=== PATIENT | female | born 1975 | race Two or more races ===

== ENCOUNTER 2018-12-19 06:00 | Day surgery (SDC) | payer OTHER ==
[2018-12-19] VITALS (8 sets, daily range): BP systolic 115–124; BP diastolic 66–75
[~2018-12-19] VITALS: Ht 152.4 cm; Wt 76.2 kg
[~2018-12-19 06:00] MED LIST: HYOSCYAMINE0.125 M2 PO; OMEPRAZOLE20 M2 ORAL
--- NOTE | 2018-12-19 07:46 | Short Stay Surgery H&P ---
History of Present Illness History of Present Illness Chief Complaint abdominal pains, GERDs HPI Rosario Cruz is a 43 year old female who was admitted on for NSAID Gastropathy,Gerds/abdominal pains Patient History Allergies: Coded Allergies: No Known Allergies (Unverified , 12/18/18) Past Surgeries: (1) S/P eye surgery Medication History Scheduled Omeprazole (Omeprazole), 20 MG ORAL DAILY, (Reported) Miscellaneous Medications Hyoscyamine Sulfate (Hyoscyamine Sulfate), 0.125 MG PO, (Reported) Review of Systems Cardiovascular: Reports: no symptoms Respiratory: Reports: no symptoms Skeletal: Reports: trauma Gastrointestinal: Reports: gastro esophageal reflux disease Genitourinary: Reports: no symptoms Neurologic: Reports: no symptoms Endocrine: Reports: no symptoms Hematologic: Reports: no symptoms Physical Exam Vital Signs Last Vital Signs Date Time Temp Pulse Resp B/P (MAP) Pulse Ox O2 Delivery O2 Flow Rate FiO2 12/19/18 06:32 Room Air 12/19/18 06:30 97.7 89 20 124/70 96 Labs Laboratory Tests Test 12/19/18 06:10 Urine HCG, Qualitative Negative (NEGATIVE) Skin: normal HENT: normal Heart: normal Lungs: normal Abdomen: abnormal Extremities: normal Genitourinary: normal Plan Plan of Care Upper GI endoscopy and biopsy Preop Interventions None, Summary of Findings See the reports Attestation Are the patient's medical conditions optimized for surgery? Attestation Response: yes Laverne Steele MD Dec 19, 2018 07:46
--- NOTE | 2018-12-19 07:48 | Pre-Procedure Note/Attestation ---
Pre-Procedure Note/Attestation Complete Prior to Procedure Planned Procedure: left Procedure Narrative: Examinaation of the upper GI tract and obtaining biopsy to R/O Helicobacter Pylori infection Indications for Procedure Pre-Operative Diagnosis: R/O Peptic Ulcer disease/ Peptic ulcer/Gastritis/Helicobacter infection Attestation I attest that I discussed the nature of the procedure; its benefits; risks and complications; and alternatives (and the risks and benefits of such alternatives ), prior to the procedure, with the patient (or the patient's legal retail wireless sales representative). I attest that, if there was a reasonable possibility of needing a blood transfusion, the patient (or the patient's legal retail wireless sales representative) was given the [place] [employer] [facility] standardized written summary, pursuant to the Thuan Kell Blood Safety Act ([place] Health and Safety Code # 1645, as amended). I attest that I re-evaluated the patient just prior to the surgery and that there has been no change in the patient's H&P, except as documented below: Laverne Steele MD Dec 19, 2018 07:48
[2018-12-19] MEDS ORDERED: Propofol 200mg/20ml IV ONE (07:55)
[2018-12-19] MEDS ORDERED: LR 1000ml ONE (07:55)
[2018-12-19] MEDS ORDERED: Midazolam 2mg/2ml Inj ONE (07:55)
[2018-12-19] MEDS ORDERED: Lidocaine 1% MPF 10mg/ml 5ml ONE (07:55)
--- NOTE | 2018-12-19 08:16 | Endoscopy Procedure Note ---
Endoscopy Procedure Note General Indication for Procedure: Abdominal pains/GERDs/nausea Procedures Performed: EGD - Mild gastroduodenitis otherwise normal upper GI endoscopy. Biopsy obtained from distal doudenal bulb and gastric body. Specimen: yes Pt Tolerated Procedure Well: Yes Estimated Blood Loss: none Anesthesia Anesthesiologist: Ms Angelina Juarez CRNA Anesthesia: moderate sedation Medications Medication Given: see anesthesia record Inserted Devices Implant(s) used?: No Quality Quality of Bowel Preparation: Excellent Was there any complications?: No GI Core Measures 50 yrs or older w/o bx or poly: Not Applicable 10yrs. F/U not recommended: Not Applicable If not recommended, why?: Med reason:<3 yrs.: System Reason:<3 yrs.: Laverne Steele MD Dec 19, 2018 08:16
--- NOTE | 2018-12-19 08:16 | Anethesia Preoperative Eval ---
Anesthesia Pre-op PMH/ROS General Date of Evaluation: Dec 19, 2018 Time of Evaluation: 07:55 Anesthesiologist: Ann ASA Score: ASA 1 Mallampati Score Class I : Soft palate, uvula, fauces, pillars visible Class II: Soft palate, uvula, fauces visible Class III: Soft palate, base of uvula visible Class IV: Only hard plate visible Mallampati Classification: Class II Surgeon: Antonino Diagnosis: GERD Surgical Procedure: EGD Anesthesia History: none Family History: no anesthesia problems Allergies: Coded Allergies: No Known Allergies (Unverified , 12/18/18) Medications: see eMAR Patient NPO?: Yes NPO Date: Dec 18, 2018 NPO Time: 22:00 Past Medical History Cardiovascular: Denies: HTN, CAD, [place], valve dz, arrhythmia, other Pulmonary: Denies: asthma, COPD, DARVIN, other Gastrointestinal/Genitourinary: Reports: GERD Neurologic/Psychiatric: Reports: depression/anxiety, other - Migraines Endocrine: Reports: DM HEENT: Reports: HYDABURG (L), HYDABURG (R) Hematology/Immune: Denies: anemia, DVT, bleeding disorder, other Musculoskeletal/Integumentary: Reports: other - Left arm muscle pain due to work related injury PSxH Narrative: bilateral ear surgery as child Anesthesia Pre-op Phys. Exam Physician Exam Last Vital Signs Date Time Temp Pulse Resp B/P (MAP) Pulse Ox O2 Delivery O2 Flow Rate FiO2 12/19/18 06:32 Room Air 12/19/18 06:30 97.7 89 20 124/70 96 Constitutional: NAD Neurologic: CN 2-12 intact Cardiovascular: RRR Respiratory: CTA Gastrointestinal: S/NT/ND Airway Exam Mallampati Score: Class II MO: full ROM: full Teeth: intact Dentures: no upper, no lower Anesthesia Pre-op A/P Labs Urine Test Test 12/19/18 06:10 Urine HCG, Qualitative Negative (NEGATIVE) Risk Assessment & Plan Assessment: A&Ox4 Plan: MAC Status Change Before Surgery: No Pre-Antibiotics Given Within 1 Hr of Incision: Angelina Casillas CRNA Dec 19, 2018 08:16
--- NOTE | 2018-12-19 08:17 | 48 Hour Post Anesthesia Eval ---
Post Anesthesia Evaluation Procedure: EGD Date of Evaluation: Dec 19, 2018 Time of Evaluation: 10:13 Blood Pressure Systolic: 115 0: 66 Pulse Rate: 95 Respiratory Rate: 18 Temperature (Fahrenheit): 97.2 O2 Sat by Pulse Oximetry: 97 Airway: patent Nausea: No Vomiting: No Pain Intensity: 0 Hydration Status: adequate Cardiopulmonary Status: WNL Mental Status/LOC: patient returned to baseline Follow-up care needed: patient intructions given Angelina Juarez CRNA Dec 19, 2018 08:17
--- NOTE | 2018-12-19 08:17 | Discharge Instructions ---
Discharge Instructions Discharge Instructions Follow up with: make appointment to see doctor after 2 weeks in office For Congestive Heart Failure Reminder Report to your physician any weight gain of 5 pounds or more in one week. Laverne Steele MD Dec 19, 2018 08:17
--- NOTE | 2018-12-19 08:17 | Immediate Post-Op Evaluation ---
Immediate Post-Op Evalulation Immediate Post-Op Evalulation Procedure: EGD Date of Evaluation: Dec 19, 2018 Time of Evaluation: 08:34 IV Fluids: LR 300 ml Blood Products: 0 Estimated Blood Loss: 0 Urinary Output: 0 Blood Pressure Systolic: 121 Blood Pressure Diastolic: 72 Pulse Rate: 95 Respiratory Rate: 20 O2 Sat by Pulse Oximetry: 100 Temperature (Fahrenheit): 97.1 Pain Score (1-10): 0 Nausea: No Vomiting: No Complications none Patient Status: awake, reacts, patent Hydration Status: adequate Given Within 1 Hr of Incision: No - none per surgeon Angelina Juarez CRNA Dec 19, 2018 08:16
--- NOTE | 2018-12-19 16:30 | Pre-op HX & Phy Repo 2 SIG ---
DATE OF ADMISSION: 12/19/2018 HISTORY OF PRESENT ILLNESS: This applicant had to be examined prior to undergoing the procedure for upper GI endoscopy physically to be cleared up for this procedure. This has been authorized for the coverage and the payment for this examination. The patient is a 43-year-old female who is being seen prior to undergoing the procedure for upper GI endoscopy for which she has been scheduled to receive for evaluation of her abdominal pain and other symptoms that she has been complaining subsequent to her work injury as she has suffered. The patient basically was examined by me approximately a month ago in the office as she had been referred for the endoscopic evaluation particularly in attention of possibility of Helicobacter pylori infection. 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 She reports to me that this time that she has been also experiencing pain over the upper part of the abdomen along with heartburn; however, this is much less as she was placed by me on medications of omeprazole and Gaviscon when I initially saw the patient in the office approximately a month ago. The patient however has been followed by [facility] who are giving her primary care as well. She reported to me that she did not know that she had a history of high blood sugar, though today as we examined her, sugar was 276 mg. She also does complain of occasional intermittent nausea. There has been no any major changes in the bowel movements though she occasionally does have diarrhea as well, but not majorly. Mostly, she has been taking Tylenol and Excedrin and similar compounds for the headaches that she has been suffering and she reports that it has been secondary to significant anxiety and pressure, which had been initiated at work where she was functioning with her job. She denies having any gastrointestinal bleeding, dysphagia, odynophagia, etc. PAST MEDICAL HISTORY: Basically, she reports no medical conditions though I mentioned I had noted that she did have possible diabetes mellitus, but however she is not being treated for this condition by her primary caregivers. PAST SURGICAL HISTORY: She has 2 surgeries for ears, otherwise unremarkable. ALLERGIES: None significant. HABITS: The applicant occasionally drinks minimal amount of alcohol, but does not smoke cigarettes and does not use illicit drugs. MEDICATIONS: She is not taking any particular medications at this time, except omeprazole and antacid that I prescribed on our first initial examination a month ago. FAMILY HISTORY: None significant. REVIEW OF SYSTEMS: Basically history of present illness. She only has some pain over the left shoulder, which seems to be related to the injuries at work. LABORATORY DATA: Not available at this time. PHYSICAL EXAMINATION: GENERAL: Preliminary physical examination reveals alert, well-oriented female, does not seem to be in any acute distress. VITAL SIGNS: All stable. HEENT: Normocephalic. Pupils equal in size, reactive to light and accommodation with no visible jaundice. Buccal cavity, tongue midline, well hydrated. No ulcers. NECK: Supple. No JVD, thyromegaly, or adenopathy. CHEST: Clear to auscultation and percussion. No rales or rhonchi. HEART: S1, S2 normal. Regular rhythm. No gallops or murmur. ABDOMEN: Soft, but there are areas of tenderness over the upper part of the abdomen, but no organomegaly or masses felt. EXTREMITIES: Within normal limits. SKIN AND LYMPHATICS: Nonsignificant. PRELIMINARY PREOPERATIVE IMPRESSION: 1. Abdominal pain of uncertain etiology, rule out NSAID-induced gastropathy, peptic ulcer disease, gastritis, duodenitis, rule out Helicobacter pylori gastritis. 2. History of significant stress related to work accident. 3. Elevated blood sugar, possibly underlying diabetes mellitus unattended and nontreated at this time. 4. History of migraine headaches. RECOMMENDATIONS AND COMMENTS: As I mentioned, the patient is not aware of having any major diabetes situation at this time. I spent some time explaining to her that she needs to be referred to her primary caregiver at [facility] to be started on medication for control of high blood sugar, which is consistent with diabetes, which has been unnoticed and unattended. At this point, my examination reveals that the patient is a good candidate to undergo the procedure of upper GI endoscopy, which requires some minimal amount of moderate sedation. She agrees and she will sign the consent form for this procedure. Said Luis Alberto Steele. DR: REGIS JOB#: [id number] CC:
--- NOTE | 2018-12-19 16:45 | Operative Note - Dictated ---
DATE OF OPERATION: 12/19/2018 SURGEON: Laverne Steele M.D. PROCEDURE: Esophagogastroduodenoscopy with biopsy. PREOPERATIVE DIAGNOSES: Abdominal pain, nausea, and heartburn. POSTOPERATIVE DIAGNOSES: 1. Mild gastritis. 2. Mild distal duodenitis. Biopsy was taken from duodenum as well as gastric body. MEDICATION USED: Per Ms. Angelina Juarez CRNA. INSTRUMENT: GIF Olympus upper GI video endoscope. DESCRIPTION OF PROCEDURE: The patient after arriving at the endoscopy unit, was told about risks and benefits of the procedure, which she accepted and signed informed consent. At this time, she was put on the left lateral decubitus position. After adequate IV sedation, the scope was gently passed through the cricopharyngeal area, was lodged into the upper esophagus gradually advanced towards gastroesophageal junction. The entire length of esophagus looked normal and there was no any evidence of any abnormality such as erythema, ulcers, stricture, etc. GE junction also looked normal. No Swanson's or major hiatal hernia noted. At this time, the scope was advanced into the stomach, gastric cavity was distended with insufflation of air and gradually the areas of the fundus and the body and the antrum of the stomach were examined. There was evidence of minimal erythema over the posterior wall body of the stomach, which was biopsied and a retroflexion maneuver which was applied. The area of the gastroesophageal junction was examined in a closer fashion, which revealed normal findings. At this point, the scope was gradually passed through the antrum, from there into pylorus and introduced into duodenal bulb. At this point the distal part of the duodenum, there was seen an area of minimal erythema approximately 4 to 5 mm, which was biopsied. However, there was no ulcers or stricture. This was consistent with mild duodenitis. Subsequently, scope was passed through the second portion of duodenum and this did not reveal any abnormality either. Finally, the scope was pulled out and the procedure was terminated. The patient tolerated the procedure well and left the endoscopy room in a good condition. Laverne Steele M.D. DR: INGA JOB#: [id number] CC:
== END 2018-12-19 09:30 | disposition home or self-care (01) ==
LOC: EDBD 06:00 → SDS 06:00
DX: K29.70 Gastritis, unspecified, without bleeding (principal); K29.80 Duodenitis without bleeding; R73.9 Hyperglycemia, unspecified; K21.9 Gastro-esophageal reflux disease without esophagitis; F32.9 Major depressive disorder, single episode, unspecified; F41.9 Anxiety disorder, unspecified; K29.50 Unspecified chronic gastritis without bleeding; B96.81 Helicobacter pylori [H. pylori] as the cause of diseases classified elsewhere
CPT/HCPCS: 43239; 81025; 82962; J2250; J2704; 94003; 94150